=== PATIENT | male | born 1960 | race Hispanic/Latino ===

== ENCOUNTER 2020-04-16 11:35 | Outpatient (CLI) | payer MEDICAID ==
--- NOTE | 2020-04-16 13:33 | RAD ---
EXAM: 3 views of the left wrist HISTORY: Wrist fracture COMPARISON: None FINDINGS: 3 views of the left wrist shows an oblique fracture through the distal aspect of the ulna. An overlying splint obscures fine bony and soft tissue detail. There is slight irregularity of the radial styloid process and a fracture in this location cannot be entirely excluded. No degenerative c hanges are present in the wrist. There are moderate degenerative changes in the first CMC joint. IMPRESSION: Distal ulna fracture
== END 2020-04-16 11:36 | disposition home or self-care (01) ==
LOC: NAV RAD 11:35
PROVIDERS: ATTEND Nurse Practitioner Family
DX: S69.92XS Unspecified injury of left wrist, hand and finger(s), sequela (principal); S52.602A Unspecified fracture of lower end of left ulna, initial encounter for closed fracture

== ENCOUNTER 2020-11-29 09:16 | Outpatient (CLI) | payer OTHER | END 2020-11-29 09:17 | disposition home or self-care (01) | LOC: NAV RAD 09:16 | PROVIDERS: ATTEND Nurse Practitioner Family | DX: M25.571 Pain in right ankle and joints of right foot (principal); M25.561 Pain in right knee ==

== ENCOUNTER 2022-06-26 09:32 | Outpatient (CLI) | payer OTHER | END 2022-06-26 09:33 | disposition home or self-care (01) | LOC: NAV RAD 09:32 | PROVIDERS: ATTEND Anesthesiology Addiction Medicine | DX: M25.571 Pain in right ankle and joints of right foot (principal); M54.2 Cervicalgia; M25.562 Pain in left knee; M25.561 Pain in right knee; M54.50 Low back pain, unspecified; M25.512 Pain in left shoulder; M25.511 Pain in right shoulder; M47.812 Spondylosis without myelopathy or radiculopathy, cervical region; M25.461 Effusion, right knee; Z96.652 Presence of left artificial knee joint; M47.816 Spondylosis without myelopathy or radiculopathy, lumbar region; M13.812 Other specified arthritis, left shoulder; M13.811 Other specified arthritis, right shoulder; Z98.890 Other specified postprocedural states | CPT/HCPCS: 72052; 72100 ==